=== PATIENT | female | born 1965 | race African-American/Black ===

== ENCOUNTER 2023-07-11 14:43 | Emergency (ER) | payer MEDICAID ==
[~2023-07-11] VITALS: Ht 172.7 cm; Wt 82.0 kg
[2023-07-11 15:00] VITALS: BP 140/89; PULSE 75; RESP 16; TEMP 97.9; O2SAT 99
[2023-07-11] MEDS ORDERED: BACITRACIN ZINC OINT UDPKT TOP ONE (20:15)
[2023-07-11] MEDS ORDERED: LIDOCAINE HCL/PF 1% 10 MG/ML 5ML VIAL INFIL ONE (20:15)
[2023-07-11] MEDS ORDERED: NAPR-1176 MT (21:27)
== END 2023-07-11 21:31 | disposition home or self-care (01) ==
LOC: ER 14:43
DX: Z48.00 Encounter for change or removal of nonsurgical wound dressing (principal)
CPT/HCPCS: 99282